=== PATIENT | female | born 1955 | race Caucasian/White ===

== ENCOUNTER 2022-05-26 15:47 | Emergency (ER) | payer OTHER ==
[~2022-05-26] VITALS: Ht 170.2 cm; Wt 50.0 kg
[2022-05-26 15:49] VITALS: BP 130/82
[2022-05-26] MEDS ORDERED: AMOX-580 PO (16:17)
[2022-05-26] MEDS ORDERED: bacitracin 15gm ointment TP ONE (16:20)
[2022-05-26] MEDS ORDERED: TETanus/Pertussis (Acell)/Diphther VAC/PF (Tdap-Adult) 0.5ml syringe IMVAC ONE (16:20)
== END 2022-05-26 16:36 | disposition home or self-care (01) ==
LOC: ER 15:48
DX: S61.250A Open bite of right index finger without damage to nail, initial encounter (principal); W54.0XXA Bitten by dog, initial encounter; Y93.89 Activity, other specified; Y92.89 Other specified places as the place of occurrence of the external cause; Y99.8 Other external cause status
CPT/HCPCS: 90471; 90715; 99283